=== PATIENT | female | born 1995 | race Caucasian/White ===

== ENCOUNTER 2018-11-18 09:06 | Inpatient (IN) ==
[2018-11-18] MEDS ORDERED: BUTORPHANOL TARTRATE 2 MG/1 ML VIAL IVP PRN (09:50)
[2018-11-18] MEDS ORDERED: LIDOCAINE HCL 2 % 10 ML JELLY URO-JECT TOPICAL PRN (09:50)
[2018-11-18] MEDS ORDERED: TERBUTALINE SULFATE 1 MG/1 ML SDV SUBCUT PRN (09:50)
[2018-11-18] MEDS ORDERED: FAMOTIDINE 20 MG/2 ML VIAL IVP PRN ×2 (09:50)
[2018-11-18] MEDS ORDERED: Nalbuphine Inj 20 MG/ML Ampule IVP PRN (09:50)
[2018-11-18] MEDS ORDERED: Naloxone Inj 0.01 MG in Sodium Chloride 0.9% vial 1 ML IVP PRN (09:50)
[2018-11-18] MEDS ORDERED: NALOXONE 0.4 MG/1 ML VIAL IVP PRN (09:50)
[2018-11-18] MEDS ORDERED: Phenylephrine Inj 50 MCG in Sodium Chloride 0.9% vial 0.5 ML IVP PRN (09:50)
[2018-11-18] MEDS ORDERED: ONDANSETRON 4 MG/2 ML VIAL IVP PRN (09:50)
[2018-11-18] MEDS ORDERED: Metoclopramide Inj 10 MG/2 ML VIAL IV PRN (09:50)
[2018-11-18] MEDS ORDERED: ePHEDrine Inj 50 MG/ML AMP IVP PRN (09:50)
[2018-11-18] MEDS ORDERED: MISOPROSTOL 200 MCG TABLET RECTAL PRN (09:50)
[2018-11-18] MEDS ORDERED: CITRIC ACID/SODIUM CITRATE 30 ML CUP PO PRN (09:50)
[2018-11-18] MEDS ORDERED: LIDOCAINE W/ SODIUM BICARB 0.5 ML SYR SUBD PRN (09:50)
[2018-11-18] MEDS ORDERED: CALCIUM CARBONATE 500 MG (TUMS) CHEWABLE TABLET PO PRN (09:50)
[2018-11-18] MEDS ORDERED: CefOXitin Inj 2 GM in Sodium Chloride 0.9% 100 ML IV PRN (09:50)
[2018-11-18] MEDS ORDERED: diphenhydrAMINE 50 MG/1 ML VIAL IVP PRN (09:50)
[2018-11-18] MEDS ORDERED: METHYLERGONOVINE MALEATE 0.2 MG/1 ML VIAL IM PRN (09:50)
[2018-11-18] MEDS ORDERED: OXYTOCIN 10 UNIT/1 ML IM PRN (09:50)
[2018-11-18] MEDS ORDERED: Zolpidem Tab 5 MG TAB PO PRN (09:50)
[2018-11-18] MEDS ORDERED: Carboprost Inj 250 MCG/ML AMP IM PRN (09:50)
[2018-11-18] MEDS ORDERED: Lidocaine 1% 10 MG/ML - 20 ML VIAL SUBCUT PRN (09:50)
[2018-11-18] MEDS ORDERED: Oxytocin 20 Units + LR 20 UNIT/1,000 ML BAG IV SCH (10:00)
[2018-11-18 10:29] LABS: BLOOD UREA NITROGEN 5 mg/dL (7-22); Hematocrit [HCT] 35.9 % (37.0-47.0); Hemoglobin [HGB] 12.1 g/dL (12.0-16.0); MEAN CORPUSCULAR HEMOGLOBIN 29.7 PG (27-31); MEAN CORPUSCULAR HGB CONC 33.7 g/dL (33-37); MEAN PLATELET VOLUME 9.2 FL (7.4-12.2); RED BLOOD COUNT 4.08 10^6/uL (4.20-5.40); SERUM ALBUMIN 3.2 g/dL (3.5-4.8)
[2018-11-18] MEDS: Misoprostol Tab 100 MCG TAB VAGINAL PRN ×2 (11:01→14:54)
[2018-11-18] MEDS: Lactated Ringers-OB Dept 1,000 ML PRIMARY IV SCH (18:02)
--- NOTE | 2018-11-18 21:35 | OB.PROGRES ---
Date of Service: 11/18/18 Time of Service: 21:30 Interval History: 23 yo at 39 1/7 weeks gestation admitted this morning for IOL 2/2 GDM. She is feeling some discomfort with contractions now. S/p 2 doses of 25 mcg cytoted. Luis Manuel q1-3 minutes. Objective - Cervical Exam Cervical Exam: 3.5/70/-2 [place]: q1-3 minutes with couplets Heart Rate: baseline 130, moderate variability, +accels, -decels Heart Rate Interpretation Category: Category I - Labs CBC and BMP: 11/18/18 10:16 11/18/18 10:16 - Vital Signs Last Taken Vital Signs: Vital Signs - Last Taken Temperature 98.3 F 11/18/18 18:30 Pulse Rate 83 11/18/18 18:30 Respiratory Rate 22 11/18/18 18:30 Blood Pressure 115/81 11/18/18 18:30 Pulse Ox 97 11/18/18 18:30 - Additional Details Additional Details: OP on u/s Assessment and Plan - Patient Problems (1) Gestational diabetes Current Visit: No Status: Acute Code(s): O24.419 - Gestational diabetes mellitus in , unspecified control Qualifiers: (2) Term Current Visit: No Status: Acute Code(s): Z34.80 - Encounter for supervision of other normal , unspecified trimester Support Text: 23 yo at 39 1/7 weeks gestation, complicated by diet controlled GDM, cholelithiasis -s/p 2 doses of cytotec 25mcg pv with some cervical change, at this point patient would like to do a whirlpool bath, then will do some time on the labor ball and will reassess contraction pattern at that time, likely start pitocin -GBS negative -will want an epidural
[2018-11-18] MEDS: fentaNYL Inj 100 MCG/2 ML VIAL IVP PRN (22:49)
[2018-11-19] MEDS: fentaNYL Inj 100 MCG/2 ML VIAL IVP PRN (01:05)
[2018-11-19] MEDS ORDERED: diphenhydrAMINE 25 MG CAPSULE PO ONE (02:24)
[2018-11-19] MEDS ORDERED: Oxytocin 20 Units + LR 20 UNIT/1,000 ML BAG IV SCH ×2 (02:30→09:44)
[2018-11-19] MEDS: fentaNYL Inj 100 MCG/2 ML VIAL IV PRN ×3 (02:48→05:22)
[2018-11-19] MEDS: Lactated Ringers-OB Dept 1,000 ML PRIMARY IV SCH (02:48)
[2018-11-19] MEDS ORDERED: Fent/Bupiv 2mcg/0.0625% Epid 250 ML ONE (06:55)
--- NOTE | 2018-11-19 07:40 | CRNA.PROCE ---
Central Neuraxis Block Placemt - - Safety Measures: Time Out Taken - - Type of Block: Epidural Reason for Block: Analgesia Moniters Used During Block: SPO2, NIBP Skin Prep Used: ChloroPrep Skin Infiltration - Enter Amount Used in Comment Field: 1% Xylocaine (mL): Yes (skin wheal) Spinal Needle Used: 18 Hustead 80 mm Local Anesthetic - Enter Amount Used in Comment Field: 1.5 % Xylocaine with Epinephrine 1:200,000 (mL): Yes (5ml) Number of Centimeters Catheter Threaded: 4 Bioclusive Dressing Applied: Yes - - Additional Details: First attempt at approx L3L4, unable to pass after three attempts. went down one level and was able to get in easily with first attempt. Anesthesia Time - Other Weight: 106.141 kg Height: 5 ft 2 in Body Mass Index (BMI): 42.7
[2018-11-19] MEDS ORDERED: fentaNYL 2 MCG/BUPIVACAINE 0.0625%/NS 0.9% 250 ML BAG EPIDURAL SCH (07:45)
[2018-11-19] MEDS ORDERED: Chloroprocaine 3% MPF (30mg/ml) 20ml vial ONE (07:49)
[2018-11-19] MEDS ORDERED: LIDOCAINE MPF 2% - 5 ML (20 MG/1 ML) ONE ×2 (07:49→07:51)
[2018-11-19] MEDS ORDERED: OXYTOCIN 10 UNIT/1 ML ONE (07:58)
[2018-11-19] MEDS ORDERED: MORPHINE SULFATE/PF 10 MG/10 ML AMPULE ONE (08:42)
[2018-11-19] MEDS ORDERED: KETOROLAC 30 MG/1 ML VIAL ONE (09:04)
[2018-11-19] MEDS ORDERED: LIDOCAINE W/ SODIUM BICARB 0.5 ML SYR SUBD PRN (09:10)
[2018-11-19] MEDS ORDERED: HYDROmorphone 2 MG/1 ML IVP PRN (09:10)
--- NOTE | 2018-11-19 09:12 | CRNA.PROGR ---
Anesthesia Time - Procedure/Recovery Time Start Date: 11/19/18 End Date: 11/19/18 Anesthesia : Time In: 06:54 Anesthesia : Time Out: 08:06 Anesthesia : Total Time: 72 - Total Anesthesia Time Total Anesthesia Time (minutes): 72 - Other Weight: 106.141 kg Height: 5 ft 2 in Body Mass Index (BMI): 42.7 Physical Status: P2 Anesthesia Type: Epidural Obstetrics: Planned vaginal delivery w/ neuraxial labor anesthesia/analog
--- NOTE | 2018-11-19 09:13 | CRNA.PROGR ---
Anesthesia Time - Procedure/Recovery Time Start Date: 11/19/18 End Date: 11/19/18 Anesthesia : Time In: 08:07 Anesthesia : Time Out: 09:09 Anesthesia : Total Time: 62 - Total Anesthesia Time Total Anesthesia Time (minutes): 62 - Other Weight: 106.141 kg Height: 5 ft 2 in Body Mass Index (BMI): 42.7 Physical Status: P2 Anesthesia Type: Epidural Obstetrics: C/S with anesthesia/analog following neuraxial labor
--- NOTE | 2018-11-19 09:13 | CRNA.PROGR ---
Anesthesia Recovery Phase I - Post Anesthesia Evaluation Patient's Condition on Arrival in Phase I: Stable Pain Level: 0
--- NOTE | 2018-11-19 09:21 | OB.OP.NOTE ---
Operative Report - - Surgeon: Satnam Demarco [place] Stitcher: Leodan Suazo MD Anesthesia Type: Regional (with 1mg Duromorph) Anesthesia Provider: Abbe Gomez CRNA Surgery Date: 11/19/18 Preoperative Diagnosis: Term , intolerance of labor Postoperative Diagnosis: Normal uterus, ovaries, fallopian tubes. 7lb 5.7oz AGA female , Apgars 7,8 Procedure: primary LTCS Complications: none apparent Estimated Blood Loss (mL): 600 Urine Output (mL): 50 Fluids: 600mL LR Indications: 23 yo at 39 2/7 admitted yesterday for IOL 2/2 GDM, essentially diet controlled (Metformin was started within the last week). She had received 2 doses of cytotec pv, was started on pitocin early this morning. AROM was followed by a 4-5 minute late decel to 90s at least, then recurrent decels. Terbutaline given with resolution of decels. Decision made to proceed with primary LTCS for intolerance. Findings: TAGA female with a nuchal cord Apgars 7,8 Normal uterus, ovaries, fallopian tubes Description of Procedure: The patient's epidural was dosed, the saeed catheter was placed. She was taken to the operating room where anesthesia was found to be adequate. She was then prepared and draped in the normal sterile fashion in the dorsal supine position with a leftward tilt. A Pfannenstiel skin incision was then made with the scalpel and carried through to the underlying layer of fascia with the Bovie. The fascia was incised in the midline and the incision extended laterally with the Bovie. The superior aspect of the fascial incision was then grasped with the Suad clamps, elevated, and the underlying rectus muscles dissected off bluntly. Attention was then turned to the inferior aspect of this incision which, in a similar fashion, was grasped with the Suad clamps and the rectus muscles dissected off both bluntly and with the Bovie. The rectus muscle was then in the midline, and the peritoneum identified and entered digitally. The peritoneal incision was then extended superiorly and inferiorly with good visualization of the bladder. The Reed retractor was then inserted and the vesicouterine peritoneum was identified. The lower uterine segment was incised in a transverse fashion with the scalpel. The uterine incision was then extended laterally in a blunt fashion. The infant's head was delivered atraumatically and nuchal cord was reduced, then the rest of the body was delivered. The nose and mouth were suctioned with the bulb suction and the cord clamped and cut without delayed cord clamping. The was handed off to the awaiting nurse. Cord gases and cord blood were sent for analysis. The placenta was then removed manually; the uterus exteriorized, and cleared of all clots and debris. The uterine incision was repaired with 0 Vicryl in a running, locked fashion. A second layer of the same suture was used to obtain excellent hemostasis. The peritoneal cavity was then copiously irrigated with warm saline. The uterus was returned to the abdomen. The paracolic gutters were copiously irrigated with warm saline and a second look at the uterine incision continued to reveal excellent hemostasis. The peritoneum was closed with 3-0 Vicryl. The fascia reapproximated with looped 0 PDS in a running fashion. The subcutaneous space was irrigated copiously with warm saline and then closed first with 3-0 Vicryl and then more superficially with Insorb absorbable sutures. The skin was reapproximated with Steri-Strips and a Silverlon dressing applied. Fundal massage was completed with no clots in vaginal vault. The patient tolerated the procedure well. Sponge, lap, and needle counts were correct x2. Mefoxin was given preoperatively less than one hour prior to incision time. The patient was taken to the recovery room in stable condition. Secondary to uterine atony patient was given 0.2mg methergine IM and 800mcg cytotec pr with good response. Patient Problems - Patient Problem List (1) Gestational diabetes Current Visit: No Status: Acute Code(s): O24.419 - Gestational diabetes mellitus in , unspecified control Qualifiers: Category: Medical (2) Term Current Visit: No Status: Acute Code(s): Z34.80 - Encounter for supervision of other normal , unspecified trimester Category: Medical
[2018-11-19] MEDS ORDERED: diphenhydrAMINE 50 MG/1 ML VIAL IV PRN (09:44)
[2018-11-19] MEDS ORDERED: ONDANSETRON 4 MG/2 ML VIAL IVP PRN (09:44)
[2018-11-19] MEDS ORDERED: KETOROLAC 15 MG/1 ML VIAL IVP SCH (09:44)
[2018-11-19] MEDS ORDERED: BUTORPHANOL TARTRATE 2 MG/1 ML VIAL IVP PRN (09:44)
[2018-11-19] MEDS ORDERED: FAMOTIDINE 20 MG/2 ML VIAL IVP PRN (09:44)
[2018-11-19] MEDS ORDERED: CALCIUM CARBONATE 500 MG (TUMS) CHEWABLE TABLET PO PRN (09:44)
[2018-11-19] MEDS ORDERED: diphenhydrAMINE 25 MG CAPSULE PO PRN (09:44)
[2018-11-19] MEDS ORDERED: LANOLIN HPA 40 GM TUBE TOPICAL PRN (09:44)
[2018-11-19] MEDS ORDERED: Naloxone Inj 0.01 MG, Sodium Chloride 0.9% vial 1 ML IVP PRN ×2 (09:44)
[2018-11-19] MEDS ORDERED: Nalbuphine Inj 20 MG/ML Ampule IVP PRN (09:44)
[2018-11-19] MEDS: oxyCODONE-ACETAMINOPHEN 5-325 TAB PO PRN ×3 (10:46→18:48)
[2018-11-19] MEDS: D5-LR 1,000 ML PRIMARY IV SCH ×2 (10:47→17:57)
[2018-11-19] MEDS: KETOROLAC 15 MG/1 ML VIAL IVP SCH ×2 (15:00→23:38)
[2018-11-20] MEDS: oxyCODONE-ACETAMINOPHEN 5-325 TAB PO PRN ×6 (01:56→21:37)
[2018-11-20 04:58] LABS: Hematocrit [HCT] 32.5 % (37.0-47.0); Hemoglobin [HGB] 10.4 g/dL (12.0-16.0); MEAN CORPUSCULAR HEMOGLOBIN 28.4 PG (27-31); MEAN CORPUSCULAR VOLUME 88.8 FL (81-99); MEAN PLATELET VOLUME 9.4 FL (7.4-12.2); RED BLOOD COUNT 3.66 10^6/uL (4.20-5.40)
[2018-11-20] MEDS: KETOROLAC 15 MG/1 ML VIAL IVP SCH ×2 (06:13→10:00)
[2018-11-20] MEDS: ENOXAPARIN SODIUM 40 MG/0.4 ML SYRINGE SUBCUT SCH ×3 (06:30→21:36)
--- NOTE | 2018-11-20 07:30 | CRNA.PROGR ---
Anesthesia Note - Progress Notes Anesthesia Progress Note: Sitting up in bed . Has been pumping. States she's been mostly comfortable. Denies nausea, denies headache. States site where epidural was placed is sore. She asked whether she should have additional pain medication for soreness in back. I replied that pain medication for incision should be enough. I also told her that if pain in her back increased that she should let nursing staff know. is reported by nursing staff to be doing well. Vital Signs - Last Taken Temperature 97.6 F 11/20/18 05:00 Pulse Rate 108 H 11/20/18 05:00 Respiratory Rate 16 11/20/18 05:00 Blood Pressure 138/86 11/20/18 05:00 Pulse Ox 96 11/19/18 18:55 No apparent anesthetic difficulties.
[2018-11-20] MEDS: Prenatal Multivitamin Tab 1 TAB TAB PO SCH (08:18)
[2018-11-20] MEDS: Senna/Docusate Tab 1 TAB TAB PO SCH ×2 (08:18→21:37)
[2018-11-20] MEDS: D5-LR 1,000 ML PRIMARY IV SCH ×3 (09:44→17:38)
[2018-11-20] MEDS: IBUPROFEN 800 MG TABLET PO SCH (15:23)
[2018-11-21] MEDS: IBUPROFEN 800 MG TABLET PO SCH ×3 (00:04→16:50)
[2018-11-21] MEDS: oxyCODONE-ACETAMINOPHEN 5-325 TAB PO PRN ×5 (07:27→20:35)
[2018-11-21] MEDS: D5-LR 1,000 ML PRIMARY IV SCH (08:53)
[2018-11-21] MEDS: Senna/Docusate Tab 1 TAB TAB PO SCH ×2 (10:06→20:32)
[2018-11-21] MEDS: ENOXAPARIN SODIUM 40 MG/0.4 ML SYRINGE SUBCUT SCH ×2 (10:06→21:00)
[2018-11-21] MEDS: Prenatal Multivitamin Tab 1 TAB TAB PO SCH (10:07)
--- NOTE | 2018-11-21 11:17 | OB.PROGRES ---
Subjective Post Day: 1 Pain Management: PO Gray Catheter: No Flatus: Yes Lochia Color: Rubra/Red Small 10-25 ml Diet: Regular Feeding Method: / Bottle Ambulating: Yes Concerns / Additional Information: Denies any concerns today Objective - General General Appearance: POSITIVE: No Acute Distress, Cooperative - Cardiovacular Cardiovascular Exam: POSITIVE: RRR Edema: +1 Pedal Edema Extremities: Negative Gopal's - Bilaterally - Respiratory Respiratory Exam: POSITIVE: Clear to Auscultation - Bilaterally, Breathing Non L abored. NEGATIVE: Rales, Rhonci, Wheezes - Reflexes Clonus (indicate extremity in comment field): Absent - Abdomen Bowel Sounds: Present - Fundus/Lochia/Perineum Uterus Consistency: Firm Uterus Position: POSITIVE: Below Umbilicus Lochia Amount: Scant < 10 ml Lochia Color: Rubra/Red Perineum Description: POSITIVE: Intact Assesstment / Plan (1) Gestational diabetes Current Visit: No Status: Acute Qualifiers: (2) Term Current Visit: No Status: Acute Support Text: 23 yo G1 now P1, POD 1 s/p primary LTCS -pain well controlled - with some difficulty, nurse to be here today -LMWH for ppx to start today -Blood sugars good, will need a 2 hour OGTT pp -Will need f/u with Gen surg given cholelithiasis after d/c -anticipate d/c in 24-48 hours
--- NOTE | 2018-11-21 11:25 | OB.PROGRES ---
Subjective Post Day: 2 Pain Management: PO Gray Catheter: No Flatus: Yes Lochia Color: Rubra/Red Diet: Regular Feeding Method: / Bottle Ambulating: Yes Objective - General General Appearance: POSITIVE: No Acute Distress, Cooperative - Cardiovacular Cardiovascular Exam: POSITIVE: RRR Edema: +1 Pedal Edema Extremities: Negative Gopal's - Bilaterally - Respiratory Respiratory Exam: POSITIVE: Clear to Auscultation - Bilaterally, Breathing Non Labored - Reflexes Clonus (indicate extremity in comment field): Absent - Abdomen Bowel Sounds: Present Abdominal Wound Assessment: Silverlone Dressing - Fundus/Lochia/Perineum Uterus Consistency: Firm Uterus Position: POSITIVE: Below Umbilicus Assesstment / Plan (1) Gestational diabetes Current Visit: No Status: Acute Qualifiers: (2) Term Current Visit: No Status: Acute Support Text: 23 yo G1 now P1, POD 2 s/p primary LTCS -pain well controlled - with some difficulty, supplementing -LMWH for ppx -Blood sugars good, will need a 2 hour OGTT pp -Will need f/u with Gen surg given cholelithiasis after d/c -anticipate d/c tomorrow given difficulty with breast feeding
[2018-11-22] MEDS: oxyCODONE-ACETAMINOPHEN 5-325 TAB PO PRN ×3 (00:30→11:27)
[2018-11-22] MEDS: IBUPROFEN 800 MG TABLET PO SCH ×2 (00:30→08:16)
[2018-11-22 02:04] VITALS: BP 128/80; RESP 16; O2SAT 96
[2018-11-22 08:17] VITALS: TEMP 98
--- NOTE | 2018-11-22 08:24 | DCSUMMARY ---
Hospitalization Summary Admit Date: 11/18/18 Discharge Date: 11/22/18 Primary Diagnosis:: s/p primary LTCS, gestational DM Primary Surgery and Date: 11/19/18 primary LTCS Delivery Type: Hospital Course: 23 yo G1 now P1 admitted for IOL at 39 weeks 2/2 GDM. She ultimately underwent a primary LTCS for intolerance after AROM. was found to have a nuchal cord. She did well postoperatively. / Postop Complications: none apparent [place] Complications: none apparent Exam - Vitals Vital Signs: Vital Signs Temperature 98 F Temperature Source Oral Pulse Rate [Pulse Oximeter] 92 Pulse Rate [Apical] 94 Pulse Rate 92 Respiratory Rate 16 Blood Pressure [Left Arm] 128/80 Blood Pressure 118/68 Pulse Ox 96 Oxygen Flow Rate RA Oxygen Delivery Method Room Air Height 5 ft 2 in Weight 234 lb - General General Appearance: No Acute Distress, Cooperative - Head Head Exam: Normal Inspection - Eye Eye Exam: POSITIVE: Normal Appearance - Neck Neck Exam: Normal Inspection - Respiratory Respiratory Exam: POSITIVE: Clear to Auscultation - Bilaterally, Breathing Non Labored. NEGATIVE: Wheezes - Cardiovascular Cardiovascular Exam: POSITIVE: RRR - GI/Abdominal GI/Abdominal Exam: POSITIVE: Normal Bowel Sounds - Extremities Extremities Exam: POSITIVE: Negative Gopal's sign, +1 Edema - Neurological Neurological Exam: POSITIVE: Alert, Oriented x 3 - Psychiatric Psychiatric Exam: POSITIVE: Normal Affect, Normal Mood Patient Problems - Patient Problem List (1) Gestational diabetes Status: Acute Code(s): O24.419 - Gestational diabetes mellitus in , unspecified control Qualifiers: Category: Medical (2) Term Status: Acute Code(s): Z34.80 - Encounter for supervision of other normal , unspecified trimester Support Text: 23 yo G1 now P1, POD 3 s/p primary LTCS -pain well controlled, Rxs for percocet 5/325, motrin 800mg - with some difficulty, pumping and bottle feeding -Blood sugars good, will need a 2 hour OGTT pp -Will need f/u with Gen surg given cholelithiasis after d/c -Considering Mirena vs DMPA for pp contraception -F/u with me in 1 week for incision check Category: Medical
[2018-11-22] MEDS: Prenatal Multivitamin Tab 1 TAB TAB PO SCH (10:09)
[2018-11-22] MEDS: ENOXAPARIN SODIUM 40 MG/0.4 ML SYRINGE SUBCUT SCH (10:10)
[2018-11-22] MEDS: Senna/Docusate Tab 1 TAB TAB PO SCH (10:10)
== END 2018-11-22 12:00 | disposition home or self-care (01) | DRG 788 ==
LOC: OBIP 09:06 → MED/SURG 11-20 00:24 → OBIP 11-20 01:33
PROVIDERS: ADMIT Student in an Organized Health Care Education/Training Program; ATTEND Student in an Organized Health Care Education/Training Program